=== PATIENT | female | born 1975 | race Native Hawaiian/Other Pacific Islander ===

== ENCOUNTER 2019-02-03 11:52 | Day surgery (SDC) | payer OTHER | END 2019-02-03 15:20 | disposition home or self-care (01) | LOC: OR 11:52 | PROC: 0DB68ZZ Excision of Stomach, Via Natural or Artificial Opening Endoscopic (ICD-10-PCS; principal; 2019-02-03) | PROC: 0D758ZZ Dilation of Esophagus, Via Natural or Artificial Opening Endoscopic (ICD-10-PCS; 2019-02-03) | DX: K29.50 Unspecified chronic gastritis without bleeding (principal); B96.81 Helicobacter pylori [H. pylori] as the cause of diseases classified elsewhere; K21.0 Gastro-esophageal reflux disease with esophagitis; K22.4 Dyskinesia of esophagus; K22.2 Esophageal obstruction; R10.13 Epigastric pain; R13.19 Other dysphagia | CPT/HCPCS: J2001; J2704 ==